=== PATIENT | male | born 1960 | race Caucasian/White ===

== ENCOUNTER 2024-03-22 13:44 | Emergency (ER) | payer OTHER, SELFPAY ==
[2024-03-22 13:56] VITALS: BP 155/83; PULSE 84; RESP 18; TEMP 36.7; O2SAT 100; BMI 21.1
--- NOTE | 2024-03-22 14:21 | ED_ITS ---
Documented by User: Martin Parish DO 03/23/24 10:27 HPI - GI Bleed 2 General: Chief complaint: GI Bleed Stated complaint: black stool Time Seen by Provider: 03/22/24 14:17 History of Present Illness: 63-year-old male presents emergency room complaining of dark stools. No otoniel bright red blood. Few days ago he had taken some charcoal because his well- adjusted positive for E. coli. Some mild abdominal discomfort no hematochezia or hematemesis. No history of any GI bleeds in the past. Patient does not drink. Associated symptoms: Denies abdominal pain, chills, fever(s) or rash Related Data Home Medications Medication Instructions Recorded Confirmed tamsulosin 0.4 mg capsule 0.4 mg PO DAILY 03/22/24 03/22/24 Previous Rx's Medication Instructions Recorded ketorolac 10 mg tablet 10 mg PO TID PRN pain #10 tabs 03/22/24 ondansetron 4 mg disintegrating 4 mg PO Q6H PRN nausea and 03/22/24 tablet vomiting #14 tabs Allergies Allergy/AdvReac Type Severity Reaction Status Date / Time No Known Allergies Allergy Verified 03/22/24 14:01 Review of Systems 2 Const: Denies: fever(s) or chills Card: Denies: chest pain Resp: Denies: dyspnea GI: Denies: abdominal pain : Denies: dysuria, urinary frequency or urinary urgency Musc: Denies: neck pain or back pain Skin/Breast: Denies: rash Physical Exam 2 Const: GENERAL APPEARANCE: cooperative ORIENTATION/CONSCIOUSNESS: Yes awake, Yes oriented to person, Yes oriented to place and Yes oriented to time HENMT: COMMON NORMALS: normocephalic, atraumatic and hearing grossly normal bilaterally HEAD & SCALP: normocephalic and atraumatic Resp: COMMON NORMALS: normal respiratory effort, No retractions, No use of accessory muscles and clear to auscultation bilaterally AUSCULTATION: clear to auscultation bilaterally Cardio: COMMON NORMALS: regular rate, regular rhythm and No murmurs present (Cardio) RATE: regular rate RHYTHM: regular rhythm GI: COMMON NORMALS: Soft to palpation and No hepatosplenomegaly present A USCULTATION: Yes normoactive bowel sounds PALPATION: Yes Soft to palpation, No Tenderness to palpation present (GI), No Guarding due to palpation present (GI) and Yes No hepatosplenomegaly present Extremity: COMMON NORMALS: normal to inspection, capillary refill normal, no clubbing, cyanosis or edema, no calf tenderness and no pedal edema Neuro: SENSORIUM/ORIENTATION: Yes oriented to person, Yes oriented to place and Yes oriented to time Skin: COMMON NORMALS: no rashes or lesions noted GENERAL SKIN EXAM: no rashes or lesions noted Course 2 Vital Signs: Vital signs: Vital Signs Temperature 98.1 F 03/22/24 13:56 Pulse Rate 83 03/22/24 19:23 Respiratory Rate 18 03/22/24 13:56 Blood Pressure 133/83 03/22/24 19:23 Pulse Oximetry 100 03/22/24 19:23 Oxygen Delivery Me thod Room Air 03/22/24 13:56 MDM - GI Bleed Medical Decision Making Patient initially presented for complaints of black stool. Stool sample was negative he also complains of abdominal pain had some blood in his urine CT was done pending read. Care signed out to Dr. Bowman at change of shift. See final notes for diagnosis and disposition. 63-year-old male gentleman checked out at shift change. This patient has suprapubic abdominal pain. His CBC is normal. His BMP shows a sodium of 128 is otherwise nonremarkable. He is Hemoccult negative. His BUN is normal. His liver enzymes are normal. Urinalysis showed hematuria. CT scan shows an enlarged bladder. There was no stone causing any other obstruction. The patient had a postvoid residual of greater than 350 cc by bladder scan. This is likely the cause of his symptoms. He is on tamsulosin. He refused Esposito catheter here. He will follow-up as an outpatient. Return for worsening symptoms. Lab Data 03/22/24 14:31 03/22/24 14:31 Radiology Impressions Abdomen/Pelvis CT 03/22/24 16:46 IMPRESSION: 1. No acute findings. 2. Prostatomegaly with indentation of the bladder base. 3. Ill-defined 4.8 cm hypodensity in segment 5 of the liver, lack of contrast administration makes evaluation limited, recommend nonemergent dedicated CT or MR of the liver for better characterization. Laboratory Results WBC 7.38 10^3/uL (3.29-11.43) 03/22/24 14:31 RBC 4.61 10^6/uL (3.85-5.65) 03/22/24 14:31 Hgb 14.50 g/dL (11.27-16.99) 03/22/24 14:31 Hct 42.7 % (37-53) 03/22/24 14:31 MCV 92.6 fl (82-101) 03/22/24 14:31 MCH 31.5 pg (27-33) 03/22/24 14:31 MCHC 34.0 g/dL (30-55) 03/22/24 14:31 RDW 12.4 % (12.1-15.1) 03/22/24 14:31 Plt Count 340 10^3/cmm (157-399) 03/22/24 14:31 MPV 8.6 fL (7.4-10.4) 03/22/24 14:31 Neut % (Auto) 74.6 % 03/22/24 14:31 Lymph % (Auto) 14.8 % 03/22/24 14:31 Tripp % (Auto) 9.5 % 03/22/24 14:31 Eos % (Auto) 0.4 % 03/22/24 14:31 Baso % (Auto) 0.4 % 03/22/24 14:31 Neut # (Auto) 5.51 10^3/uL (1.8-7.7) 03/22/24 14:31 Lymph # (Auto) 1.1 10^3/uL (0.8-4.8) 03/22/24 14:31 Tripp # (Auto) 0.7 10^3/uL (0.2-0.9) 03/22/24 14:31 Eos # (Auto) 0.0 10^3/uL (0.0-0.8) 03/22/24 14:31 Baso # (Auto) 0.0 10^3/uL (0.0-0.1) 03/22/24 14:31 Nucleated RBC % (auto) 0 % 03/22/24 14:31 Nucleated RBCs # 0.0 /100WBC 03/22/24 14:31 PT 13.50 SECONDS (12.1-14.9) 03/22/24 14:31 INR 1.00 (0.8-1.2) 03/22/24 14:31 Sodium 128 mmol/L (136-145) L 03/22/24 14:31 Potassium 4.6 mmol/L (3.5-5.1) 03/22/24 14:31 Chloride 88 mmol/L (98-107) L 03/22/24 14:31 Carbon Dioxide 27 mmol/L (22-29) 03/22/24 14:31 Anion Gap 17.6 (5-19) 03/22/24 14:31 BUN 10 mg/dL (8-23) 03/22/24 14:31 Creatinine 0.7 mg/dL (0.7-1.2) 03/22/24 14:31 GFR Calculation 113.5 mL/min (90-130) 03/22/24 14:31 Glucose 134 mg/dL (65-115) H 03/22/24 14:31 Calculated Osmolality 267 mOsm/kg (285-295) L 03/22/24 14:31 Calcium 10.2 mg/dL (8.5-10.5) 03/22/24 14:31 Total Bilirubin 1.1 mg/dL (0.15-1.2) 03/22/24 14:31 AST 37 U/L (0-40) 03/22/24 14:31 ALT 34 U/L (0-41) 03/22/24 14:31 Alkaline Phosphatase 76 U/L (40-130) 03/22/24 14:31 Total Protein 7.3 g/dL (6.6-8.7) 03/22/24 14:31 Albumin 4.6 g/dL (3.5-5.2) 03/22/24 14:31 Globulin 2.7 g/dL (1.3-4.6) 03/22/24 14:31 Urine Color Yellow (Yellow) 03/22/24 15:54 Urine Appearance Cloudy (CLEAR) A 03/22/24 15:54 Urine pH 7.0 (5-7) 03/22/24 15:54 Ur Specific [place] 1.013 (1.005-1.030) 03/22/24 15:54 Urine Protein Negative (Negative) 03/22/24 15:54 Urine Glucose (UA) Negative (Normal) 03/22/24 15:54 Urine Ketones Trace (Negative) 03/22/24 15:54 Urine Blood 1+ (Negative) A 03/22/24 15:54 Urine Nitrate Negative (Negative) 03/22/24 15:54 Urine Bilirubin Negative (Negative) 03/22/24 15:54 Urine Urobilinogen 0.2 mg/dL (Negative) 03/22/24 15:54 Ur Leukocyte Esterase Negative (Negative) 03/22/24 15:54 Urine RBC 5-10 /hpf (0-2) H 03/22/24 15:54 Urine WBC 0-4 /hpf (0-5) H 03/22/24 15:54 Ur Squamous Epith Cells 0-4 /hpf (0-5) H 03/22/24 15:54 Amorphous Sediment Not Reportable 03/22/24 15:54 Urine Bacteria 2+ /hpf (NONE) H 03/22/24 15:54 Discharge Plan Discharge Patient Disposition: Home Clinical Impression: Abdominal pain Condition: Stable Prescriptions: New ketorolac 10 mg tablet 10 mg PO TID PRN (Reason: pain) Qty: 10 0RF ondansetron 4 mg tablet,disintegrating 4 mg PO Q6H PRN (Reason: nausea and vomiting) Qty: 14 0RF No Action tamsulosin 0.4 mg capsule 0.4 mg PO DAILY Discharge Orders: Discharge ED (Routine); Ordered 03/22/24 Ordered By: Van Bowman Discharge Diet: Clear Liquid Discharge Activity: Increase activity as tolerated Patient Instructions: Abdominal Pain (ED), Opioid Safety, Pain Management Activity Restrictions/Additional Instructions: Thank you for choosing [facility] for your healthcare needs today. It is very important that you follow up as instructed or that you return to the Emergency Department should you have concerns or if your condition changes or worsens in any way. You are seen in the emergency room for concerns about dark stool. The stool sample was negative for occult blood. Your hemoglobin is normal your white count is normal your abdominal exam was benign. You did have a mildly low sodium level your liver functions were normal. Recommend clear liquid diet for the next 2 days then advance as tolerated if your symptoms worsen or change return. Also, your bladder was enlarged by CAT scan. This can cause abdominal pain as well. We noticed that you are on tamsulosin, which can help this if taken regularly. Medications are for symptoms alone. See your doctor this coming week. Coding Level of Care Code ED Electromechanical Equipment Tester for Chg Fwd Documented by User: Van Bowman DO 03/22/24 21:08 HPI - GI Bleed 2 General: Chief complaint: GI Bleed Stated complaint: black stool Time Seen by Provider: 03/22/24 14:17 Related Data Home Medications Medication Instructions Recorded Confirmed tamsulosin 0.4 mg capsule 0.4 mg PO DAILY 03/22/24 03/22/24 Previous Rx's Medication Instructions Recorded ketorolac 10 mg tablet 10 mg PO TID PRN pain #10 tabs 03/22/24 ondansetron 4 mg disintegrating 4 mg PO Q6H PRN nausea and 03/22/24 tablet vomiting #14 tabs Allergies Allergy/AdvReac Type Severity Reaction Status Date / Time No Known Allergies Allergy Verified 03/22/24 14:01 Course 2 Vital Signs: Vital signs: Vital Signs Temperature 98.1 F 03/22/24 13:56 Pulse Rate 83 03/22/24 19:23 Respiratory Rate 18 03/22/24 13:56 Blood Pressure 133/83 03/22/24 19:23 Pulse Oximetry 100 03/22/24 19:23 Oxygen Delivery Me thod Room Air 03/22/24 13:56 MDM - GI Bleed Medical Decision Making 63-year-old male gentleman checked out at shift change. This patient has suprapubic abdominal pain. His CBC is normal. His BMP shows a sodium of 128 is otherwise nonremarkable. He is Hemoccult negative. His BUN is normal. His liver enzymes are normal. Urinalysis showed hematuria. CT scan shows an enlarged bladder. There was no stone causing any other obstruction. The patient had a postvoid residual of greater than 350 cc by bladder scan. This is likely the cause of his symptoms. He is on tamsulosin. He refused Esposito catheter here. He will follow-up as an outpatient. Return for worsening symptoms. Lab Data 03/22/24 14:31 03/22/24 14:31 Radiology Impressions Abdomen/Pelvis CT 03/22/24 16:46 IMPRESSION: 1. No acute findings. 2. Prostatomegaly with indentation of the bladder base. 3. Ill-defined 4.8 cm hypodensity in segment 5 of the liver, lack of contrast administration makes evaluation limited, recommend nonemergent dedicated CT or MR of the liver for better characterization. Laboratory Results WBC 7.38 10^3/uL (3.29-11.43) 03/22/24 14:31 RBC 4.61 10^6/uL (3.85-5.65) 03/22/24 14:31 Hgb 14.50 g/dL (11.27-16.99) 03/22/24 14:31 Hct 42.7 % (37-53) 03/22/24 14:31 MCV 92.6 fl (82-101) 03/22/24 14:31 MCH 31.5 pg (27-33) 03/22/24 14:31 MCHC 34.0 g/dL (30-55) 03/22/24 14:31 RDW 12.4 % (12.1-15.1) 03/22/24 14:31 Plt Count 340 10^3/cmm (157-399) 03/22/24 14:31 MPV 8.6 fL (7.4-10.4) 03/22/24 14:31 Neut % (Auto) 74.6 % 03/22/24 14:31 Lymph % (Auto) 14.8 % 03/22/24 14:31 Tripp % (Auto) 9.5 % 03/22/24 14:31 Eos % (Auto) 0.4 % 03/22/24 14:31 Baso % (Auto) 0.4 % 03/22/24 14:31 Neut # (Auto) 5.51 10^3/uL (1.8-7.7) 03/22/24 14:31 Lymph # (Auto) 1.1 10^3/uL (0.8-4.8) 03/22/24 14:31 Tripp # (Auto) 0.7 10^3/uL (0.2-0.9) 03/22/24 14:31 Eos # (Auto) 0.0 10^3/uL (0.0-0.8) 03/22/24 14:31 Baso # (Auto) 0.0 10^3/uL (0.0-0.1) 03/22/24 14:31 Nucleated RBC % (auto) 0 % 03/22/24 14:31 Nucleated RBCs # 0.0 /100WBC 03/22/24 14:31 PT 13.50 SECONDS (12.1-14.9) 03/22/24 14:31 INR 1.00 (0.8-1.2) 03/22/24 14:31 Sodium 128 mmol/L (136-145) L 03/22/24 14:31 Potassium 4.6 mmol/L (3.5-5.1) 03/22/24 14:31 Chloride 88 mmol/L (98-107) L 03/22/24 14:31 Carbon Dioxide 27 mmol/L (22-29) 03/22/24 14:31 Anion Gap 17.6 (5-19) 03/22/24 14:31 BUN 10 mg/dL (8-23) 03/22/24 14:31 Creatinine 0.7 mg/dL (0.7-1.2) 03/22/24 14:31 GFR Calculation 113.5 mL/min (90-130) 03/22/24 14:31 Glucose 134 mg/dL (65-115) H 03/22/24 14:31 Calculated Osmolality 267 mOsm/kg (285-295) L 03/22/24 14:31 Calcium 10.2 mg/dL (8.5-10.5) 03/22/24 14:31 Total Bilirubin 1.1 mg/dL (0.15-1.2) 03/22/24 14:31 AST 37 U/L (0-40) 03/22/24 14:31 ALT 34 U/L (0-41) 03/22/24 14:31 Alkaline Phosphatase 76 U/L (40-130) 03/22/24 14:31 Total Protein 7.3 g/dL (6.6-8.7) 03/22/24 14:31 Albumin 4.6 g/dL (3.5-5.2) 03/22/24 14:31 Globulin 2.7 g/dL (1.3-4.6) 03/22/24 14:31 Urine Color Yellow (Yellow) 03/22/24 15:54 Urine Appearance Cloudy (CLEAR) A 03/22/24 15:54 Urine pH 7.0 (5-7) 03/22/24 15:54 Ur Specific [place] 1.013 (1.005-1.030) 03/22/24 15:54 Urine Protein Negative (Negative) 03/22/24 15:54 Urine Glucose (UA) Negative (Normal) 03/22/24 15:54 Urine Ketones Trace (Negative) 03/22/24 15:54 Urine Blood 1+ (Negative) A 03/22/24 15:54 Urine Nitrate Negative (Negative) 03/22/24 15:54 Urine Bilirubin Negative (Negative) 03/22/24 15:54 Urine Urobilinogen 0.2 mg/dL (Negative) 03/22/24 15:54 Ur Leukocyte Esterase Negative (Negative) 03/22/24 15:54 Urine RBC 5-10 /hpf (0-2) H 03/22/24 15:54 Urine WBC 0-4 /hpf (0-5) H 03/22/24 15:54 Ur Squamous Epith Cells 0-4 /hpf (0-5) H 03/22/24 15:54 Amorphous Sediment Not Reportable 03/22/24 15:54 Urine Bacteria 2+ /hpf (NONE) H 03/22/24 15:54 All radiology interpretation(s) finalized by discharge Discharge Plan Discharge Patient Disposition: Home Clinical Impression: Abdominal pain Condition: Stable Prescriptions: New ketorolac 10 mg tablet 10 mg PO TID PRN (Reason: pain) Qty: 10 0RF ondansetron 4 mg tablet,disintegrating 4 mg PO Q6H PRN (Reason: nausea and vomiting) Qty: 14 0RF No Action tamsulosin 0.4 mg capsule 0.4 mg PO DAILY Discharge Orders: Discharge ED (Routine); Ordered 03/22/24 Ordered By: Van Bowman Discharge Diet: Clear Liquid Discharge Activity: Increase activity as tolerated Patient Instructions: Abdominal Pain (ED), Opioid Safety, Pain Management Activity Restrictions/Additional Instructions: Thank you for choosing [facility] for your healthcare needs today. It is very important that you follow up as instructed or that you return to the Emergency Department should you have concerns or if your condition changes or worsens in any way. You are seen in the emergency room for concerns about dark stool. The stool sample was negative for occult blood. Your hemoglobin is normal your white count is normal your abdominal exam was benign. You did have a mildly low sodium level your liver functions were normal. Recommend clear liquid diet for the next 2 days then advance as tolerated if your symptoms worsen or change return. Also, your bladder was enlarged by CAT scan. This can cause abdominal pain as well. We noticed that you are on tamsulosin, which can help this if taken regularly. Medications are for symptoms alone. See your doctor this coming week. Coding Level of Care Code ED Electromechanical Equipment Tester for Angel Ortega
[2024-03-22 14:30] VITALS: BP 141/73; PULSE 84; O2SAT 100
[2024-03-22 14:40] LABS: Basophils % 0.4 %; Eosinophils % 0.4 %; Hematocrit 42.7 % (37-53); Lymphocytes # 1.1 10^3/uL (0.8-4.8); Lymphocytes % 14.8 %; Mean Corpuscular Hemoglobin 31.5 pg (27-33); Mean Corpuscular Volume 92.6 fl (82-101); Mean Platelet Volume 8.6 fL (7.4-10.4); Monocytes # 0.7 10^3/uL (0.2-0.9); Monocytes % 9.5 %; Neutrophils # 5.51 10^3/uL (1.8-7.7); Neutrophils % 74.6 %; Nucleated Red Blood Cells % 0 %; Platelet Count 340 10^3/cmm (157-399); Red Blood Count 4.61 10^6/uL (3.85-5.65); Red Cell Distribution Width 12.4 % (12.1-15.1); White Blood Count 7.38 10^3/uL (3.29-11.43)
[2024-03-22 15:00] VITALS: BP 148/77; PULSE 83; O2SAT 100
[2024-03-22 15:00] LABS: Alanine Aminotransferase 34 U/L (0-41); Albumin Level 4.6 g/dL (3.5-5.2); Alkaline Phosphatase 76 U/L (40-130); Anion Gap 17.6 (5-19); Aspartate Amino Transferase 37 U/L (0-40); Blood Urea Nitrogen 10 mg/dL (8-23); Calcium 10.2 mg/dL (8.5-10.5); Carbon Dioxide 27 mmol/L (22-29); Chloride 88 mmol/L (98-107); Creatinine Clr Calc Pharmacy 116.0659; Globulin 2.7 g/dL (1.3-4.6); Glomerular Filtration Rate 113.5 mL/min (90-130); Glucose 134 mg/dL (65-115); Osmolality Calculated 267 mOsm/kg (285-295); Potassium 4.6 mmol/L (3.5-5.1); Sodium 128 mmol/L (136-145); Total Bilirubin 1.1 mg/dL (0.15-1.2); Total Protein 7.3 g/dL (6.6-8.7)
[2024-03-22 15:30] VITALS: BP 142/92; PULSE 85; O2SAT 99
[2024-03-22 16:28] LABS: Bilirubin Urine Negative (Negative); Blood Urine 1+ (Negative); Glucose Urine UA Negative (Normal); Ketones Urine Trace (Negative); Leukocyte Esterase Urine Negative (Negative); Nitrate Urine Negative (Negative); Protein Urine Negative (Negative); Specific Gravity, Urine 1.013 (1.005-1.030); Urine Appearance Cloudy (CLEAR); Urine Color Yellow (Yellow); Urobilinogen Urine 0.2 mg/dL (Negative)
[2024-03-22 16:43] LABS: Add Urine Culture? Yes; Add Urine Microscopic? YES; Bacteria Urine 2+ /hpf; Squamous Epithelial Cell Urine 0-4 /hpf (0-5); UA Manual Slide Review YES; WBC Urine 0-4 /hpf (0-5)
--- NOTE | 2024-03-22 16:46 | CTR_ITS ---
PROCEDURE INFORMATION: Exam: CT Abdomen And Pelvis Without Contrast Exam date and time: 03/22/2024 4:52 PM Age: 63 years old Clinical indication: Other: Hematuria TECHNIQUE: Imaging protocol: Computed tomography of the abdomen and pelvis without contrast. Radiation optimization: All CT scans at this facility use at least one of these dose optimization techniques: automated exposure control; mA and/or kV adjustment per patient size (includes targeted exams where dose is matched to clinical indication); or iterative reconstruction. COMPARISON: l spine RADIATION DOSE METRICS: Total DLP (mGy-cm): 383.75 FINDINGS: Limitations: Examination is limited for the evaluation of solid organs and vascular structures due to the lack of intravenous contrast. Lungs: Lung bases are unremarkable. Liver: Ill-defined 4.8 cm hypodensity in segment 5 of the liver, lack of contrast administration makes this evaluation limited. Recommend clinical correlation and dedicated CT of the liver for better evaluation. Gallbladder and biliary ducts: No intrahepatic or extrahepatic biliary ductal dilatation. The gallbladder is unremarkable with no radioopaque stone. Pancreas: Pancreas is unremarkable. No ductal dilation or peripancreatic inflammation. Spleen: The spleen is unremarkable. Adrenal glands: Adrenal glands are unremarkable. Kidneys and ureters: No hydronephrosis or nephrolithiasis. Stomach and bowel: Stomach is distended. Small and large bowel are normal in caliber without evidence of obstruction. Extensive amount of feces in the entire colon. Diverticulosis without evidence of diverticulitis. Appendix: No evidence of appendicitis. Intraperitoneal space: No free intraperitoneal air. No fluid collection. Vasculature: There is no aortic aneurysm. There is atherosclerotic disease. Lymph nodes: No pathologically enlarged lymph nodes (by short axis size criteria). Urinary bladder: No focal wall thickening of the urinary bladder. Reproductive: The prostate is enlarged and indents the base of the bladder. Bones/joints: No acute osseous abnormality. There is degenerative disease of the spine. Soft tissues: Unremarkable. CT/CT kidney stone [id number] IMPRESSION: 1. No acute findings. 2. Prostatomegaly with indentation of the bladder base. 3. Ill-defined 4.8 cm hypodensity in segment 5 of the liver, lack of contrast administration makes evaluation limited, recommend nonemergent dedicated CT or MR of the liver for better characterization.
--- NOTE | 2024-03-22 17:52 | PC.NURSE ---
PT REPEATEDLY TAKING OFF BP CUFF AND PULSE OX. EDUCATED ON THE NEED FOR EQUIPMENT, BUT PT CONTINUES TO TAKE IT OFF AND ROAM AROUND THE ROOM AND PHYSICS TUTOR THE DOORWAY.
[2024-03-22 19:00] VITALS: BP 133/83; PULSE 83; O2SAT 100
[2024-03-22] MEDS: ketorolac 30 mg/mL INJ IVP (19:05)
[2024-03-22] MEDS: ondansetron 2 mg/ML SDV 2 mL 4 MG IVP (19:05)
[2024-03-22 19:23] VITALS: BP 133/83; PULSE 83; O2SAT 100
== END 2024-03-22 19:05 | disposition home or self-care (01) ==
PROVIDERS: Emergency Medicine; Family Medicine; Emergency Provider Emergency Medicine
DX: R10.9 Unspecified abdominal pain (principal)
CPT/HCPCS: 36415; 51798; 74176; 80053; 81001; 85025; 85610; 87086; 96374; 96375; 99285; J1885; J2405

== ENCOUNTER 2024-04-29 08:10 | Emergency (ER) | payer OTHER, SELFPAY ==
[2024-04-29 08:34] VITALS: BP 122/74; PULSE 94; RESP 18; TEMP 36.8; O2SAT 100; BMI 18.4
--- NOTE | 2024-04-29 08:42 | ECG_ITS ---
[facility]24[facility]29 Pat Name: Natalee Barney Department: Room: Gender: Male Business Solution Analyst: : 1960 Requested By: Martin Navarro Order Number: [id number] Reading MD: RELL AVERY Measurements Intervals [place] Rate: 74 P: 86 VA: 177 QRS: 68 QRSD: 100 T: 90 QT: 391 QTc: 435 Interpretive Statements SINUS RHYTHM No previous ECG available for comparison Electronically Signed On 05-01-2024 23:29:56 BURRITO MAKER by RELL AVERY [id number]
[2024-04-29 08:53] LABS: Eosinophils % 0.4 %; Hematocrit 39.8 % (37-53); Lymphocytes # 0.8 10^3/uL (0.8-4.8); Lymphocytes % 9.1 %; Mean Corpuscular HGB Conc 35.2 g/dL (30-55); Mean Corpuscular Hemoglobin 31.7 pg (27-33); Mean Platelet Volume 8.1 fL (7.4-10.4); Monocytes # 0.7 10^3/uL (0.2-0.9); Monocytes % 7.8 %; Neutrophils # 7.01 10^3/uL (1.8-7.7); Neutrophils % 82.3 %; Nucleated Red Blood Cells % 0 %; Platelet Count 359 10^3/cmm (157-399); Red Blood Count 4.42 10^6/uL (3.85-5.65); Red Cell Distribution Width 12.5 % (12.1-15.1)
--- NOTE | 2024-04-29 08:57 | PC.PHAR ---
patient stopped taking meloxicam ,tamsulosin, cyclobenzaprine due to the way it made him feel. removed from chart
[2024-04-29 09:07] LABS: Alanine Aminotransferase 63 U/L (0-41); Albumin Level 4.5 g/dL (3.5-5.2); Alkaline Phosphatase 106 U/L (40-130); Anion Gap 17.6 (5-19); Aspartate Amino Transferase 54 U/L (0-40); Blood Urea Nitrogen 17 mg/dL (8-23); Calcium 9.9 mg/dL (8.5-10.5); Carbon Dioxide 28 mmol/L (22-29); Chloride 80 mmol/L (98-107); Creatinine Clr Calc Pharmacy 74.4788; Globulin 2.3 g/dL (1.3-4.6); Glucose 140 mg/dL (65-115); Osmolality Calculated 256 mOsm/kg (285-295); Potassium 4.6 mmol/L (3.5-5.1); Sodium 121 mmol/L (136-145); Total Bilirubin 1.4 mg/dL (0.15-1.2); Total Protein 6.8 g/dL (6.6-8.7)
--- NOTE | 2024-04-29 09:11 | ED_ITS ---
HPI - Abdominal Pain 2 General: Chief Complaint: Abdominal Pain Stated Complaint: Pain in abd, dizzy Time Seen by Provider: 04/29/24 08:27 History of Present Illness: 63-year-old male presents to the emergen cy room complaining of lower abdominal pain. He has a history of BPH. Said some mild abdominal discomfort. He has not had any dysuria urgency or frequency no otoniel hematuria. Denies fever sweats or chills no vomiting no diarrhea. Associated Symptoms: Denies chills, dysuria and fever(s) Related Data Previous Rx's Medication Instructions Recorded diclofenac sodium 75 mg 75 mg PO Q12H PRN pain #20 tabs 04/29/24 tablet,delayed release promethazine 25 mg tablet 25 mg PO Q6H PRN nausea and 04/29/24 vomiting #20 tabs tizanidine 4 mg tablet 4 mg PO Q6H PRN muscle spasticity 04/29/24 #20 tabs Allergies Allergy/AdvReac Type Severity Reaction Status Date / Time No Known Allergies Allergy Verified 03/22/24 14:01 Review of Systems 2 Const: Denies: fever(s) or chills Card: Denies: chest pain Resp: Denies: dyspnea GI: Reports: abdominal pain : Denies: dysuria, urinary frequency or urinary urgency Musc: Denies: neck pain or back pain Skin/Breast: Denies: rash Physical Exam 2 Const: GENERAL APPEARANCE: cooperative ORIENTATION/CONSCIOUSNESS: Yes awake, Yes oriented to person, Yes oriented to place and Yes oriented to time HENMT: COMMON NORMALS: normocephalic, atraumatic and hearing grossly normal bilaterally HEAD & SCALP: normocephalic and atraumatic Resp: COMMON NORMALS: normal respiratory effort, No retractions, No use of accessory muscles and clear to auscultation bilaterally AUSCULTATION: clear to auscultation bilaterally Cardio: COMMON NORMALS: regular rate, regular rhythm and No murmurs present (Cardio) RATE: regular rate RHYTHM: regular rhythm GI: COMMON NORMALS: No hepatosplenomegaly present AUSCULTATION: Yes normoactive bowel sounds PALPATION: Yes Tenderness to palpation present (GI) (Diffuse nonspecific), No Guarding due to palpation present (GI) and Yes No hepatosplenomegaly present Extremity: COMMON NORMALS: normal to inspection, capillary refill normal, no clubbing, cyanosis or edema, no calf tenderness and no pedal edema Neuro: SENSORIUM/ORIENTATION: Yes oriented to person, Yes oriented to place and Yes oriented to time Skin: COMMON NORMALS: no rashes or lesions noted GENERAL SKIN EXAM: no rashes or lesions noted Course 2 Vital Signs: Vital signs: Vital Signs Temperature 98.3 F 04/29/24 08:34 Pulse Rate 86 04/29/24 12:52 Respiratory Rate 18 04/29/24 08:34 Blood Pressure 133/83 04/29/24 12:52 Pulse Oximetry 98 04/29/24 12:52 Oxygen Delivery Me thod Room Air 04/29/24 11:23 MDM - Abdominal Pain Medical Decision Making Labs and imaging reviewed no acute findings. There is a questionable area on the liver that will need reimaging at a later date either with CT with contrast or MRI. Bladder scan does not show urinary retention. Also noted to have mild hyponatremia. We did set up a gallbladder ultrasound as an outpatient patient has further follow-up with his primary care or oncology team. Medical Records I reviewed the patient's medical records. Lab Data I reviewed the patient's lab results. 04/29/24 08:45 04/29/24 08:45 Labs/Radiology: Laboratory Results WBC 8.50 10^3/uL (3.29-11.43) 04/29/24 08:45 RBC 4.42 10^6/uL (3.85-5.65) 04/29/24 08:45 Hgb 14.00 g/dL (11.27-16.99) 04/29/24 08:45 Hct 39.8 % (37-53) 04/29/24 08:45 MCV 90.0 fl (82-101) 04/29/24 08:45 MCH 31.7 pg (27-33) 04/29/24 08:45 MCHC 35.2 g/dL (30-55) 04/29/24 08:45 RDW 12.5 % (12.1-15.1) 04/29/24 08:45 Plt Count 359 10^3/cmm (157-399) 04/29/24 08:45 MPV 8.1 fL (7.4-10.4) 04/29/24 08:45 Neut % (Auto) 82.3 % 04/29/24 08:45 Lymph % (Auto) 9.1 % 04/29/24 08:45 [place] % (Auto) 7.8 % 04/29/24 08:45 Eos % (Auto) 0.4 % 04/29/24 08:45 Baso % (Auto) 0.0 % 04/29/24 08:45 Neut # (Auto) 7.01 10^3/uL (1.8-7.7) 04/29/24 08:45 Lymph # (Auto) 0.8 10^3/uL (0.8-4.8) 04/29/24 08:45 [place] # (Auto) 0.7 10^3/uL (0.2-0.9) 04/29/24 08:45 Eos # (Auto) 0.0 10^3/uL (0.0-0.8) 04/29/24 08:45 Baso # (Auto) 0.0 10^3/uL (0.0-0.1) 04/29/24 08:45 Nucleated RBC % (auto) 0 % 04/29/24 08:45 Nucleated RBCs # 0.0 /100WBC 04/29/24 08:45 Sodium 121 mmol/L (136-145) L 04/29/24 08:45 Potassium 4.6 mmol/L (3.5-5.1) 04/29/24 08:45 Chloride 80 mmol/L (98-107) L 04/29/24 08:45 Carbon Dioxide 28 mmol/L (22-29) 04/29/24 08:45 Anion Gap 17.6 (5-19) 04/29/24 08:45 BUN 17 mg/dL (8-23) 04/29/24 08:45 Creatinine 0.9 mg/dL (0.7-1.2) 04/29/24 08:45 GFR Calculation 85.0 mL/min (90-130) L 04/29/24 08:45 Glucose 140 mg/dL (65-115) H 04/29/24 08:45 Calculated Osmolality 256 mOsm/kg (285-295) L 04/29/24 08:45 Calcium 9.9 mg/dL (8.5-10.5) 04/29/24 08:45 Total Bilirubin 1.4 mg/dL (0.15-1.2) H 04/29/24 08:45 AST 54 U/L (0-40) H 04/29/24 08:45 ALT 63 U/L (0-41) H 04/29/24 08:45 Alkaline Phosphatase 106 U/L (40-130) 04/29/24 08:45 Total Protein 6.8 g/dL (6.6-8.7) 04/29/24 08:45 Albumin 4.5 g/dL (3.5-5.2) 04/29/24 08:45 Globulin 2.3 g/dL (1.3-4.6) 04/29/24 08:45 Urine Color Yellow (Yellow) 04/29/24 09:50 Urine Appearance Clear (CLEAR) 04/29/24 09:50 Urine pH 8.0 (5-7) A 04/29/24 09:50 Ur Specific [place] 1.011 (1.005-1.030) 04/29/24 09:50 Urine Protein Negative (Negative) 04/29/24 09:50 Urine Glucose (UA) Negative (Normal) 04/29/24 09:50 Urine Ketones Trace (Negative) 04/29/24 09:50 Urine Blood Negative (Negative) 04/29/24 09:50 Urine Nitrate Negative (Negative) 04/29/24 09:50 Urine Bilirubin Negative (Negative) 04/29/24 09:50 Urine Urobilinogen 1.0 mg/dL (Negative) 04/29/24 09:50 Ur Leukocyte Esterase Negative (Negative) 04/29/24 09:50 Urine RBC 3-5 /hpf (0-2) 04/29/24 09:50 Urine WBC 0-5 /hpf (0-5) 04/29/24 09:50 Ur Squamous Epith Cells 0-5 /hpf (0-5) 04/29/24 09:50 Amorphous Sediment Not Reportable 04/29/24 09:50 Urine Bacteria None seen /hpf (NONE) 04/29/24 09:50 Hyaline Casts 0-4 /lpf H 04/29/24 09:50 All radiology interpretation(s) finalized by discharge Discharge Plan Discharge Patient Disposition: Home Clinical Impression: Hyponatremia, Prostate cancer, Elevated transaminase level, Low back pain Condition: Stable Prescriptions: New tizanidine 4 mg tablet 4 mg PO Q6H PRN (Reason: muscle spasticity) Qty: 20 0RF Rx Instructions: do not exceed 3 doses per 24 hrs promethazine 25 mg tablet 25 mg PO Q6H PRN (Reason: nausea and vomiting) Qty: 20 0RF diclofenac sodium 75 mg tablet,delayed release (DR/EC) 75 mg PO Q12H PRN (Reason: pain) Qty: 20 0RF Discharge Orders: Discharge ED (Routine); Ordered 04/29/24 Ordered By: Martin Parish Discharge Diet: Advance as tolerated Discharge Activity: Increase activity as tolerated Patient Instructions: Opioid Safety, Pain Management Activity Restrictions/Additional Instructions: Thank you for choosing [facility] for your healthcare needs today. It is very important that you follow up as instructed or that you return to the Emergency Department should you have concerns or if your condition changes or worsens in any way. You were seen in the emergency room with complaints of abdominal discomfort. Most of your abdominal discomfort you are referred to the area above the pubic bone in the pelvis. We did scan your bladder there is no significant residual in the bladder after voiding. Your liver enzymes were elevated as well as your bilirubin. Since you are not having pain in this area and preferred to go home we set up an outpatient gallbladder ultrasound for you. We also noticed your sodium was low. We did give you IV fluids to help improve this. You should recheck your sodium and reevaluated your primary care doctor within the next week. Follow-up with the results of the gallbladder ultrasound within the next week. If you have worsening symptoms return to the emergency room. You had complained of some low back pain as well. You were given diclofenac and tizanidine for this. Avoid fatty foods spicy foods red meats and dairy products as these may aggravate gallbladder symptoms. You are also given promethazine to use as needed Coding Level of Care Code ED Home Planning Consultant Salesperson for Angel Ortega
--- NOTE | 2024-04-29 09:20 | PC.NURSE ---
pt will not sit still, pt pacing room. pt not on satellite project site monitor d/t pacing room.
[2024-04-29 10:00] LABS: Bilirubin Urine Negative (Negative); Blood Urine Negative (Negative); Glucose Urine UA Negative (Normal); Ketones Urine Trace (Negative); Leukocyte Esterase Urine Negative (Negative); Nitrate Urine Negative (Negative); Protein Urine Negative (Negative); Specific Gravity, Urine 1.011 (1.005-1.030); Urine Appearance Clear (CLEAR); Urine Color Yellow (Yellow)
[2024-04-29 10:02] LABS: Add Urine Microscopic? YES; Bacteria Urine None Seen /hpf; Hyaline Casts Urine 0-4 /lpf; Squamous Epithelial Cell Urine 0-5 /hpf (0-5); WBC Urine 0-5 /hpf (0-5)
[2024-04-29] MEDS: sodium chloride 0.9% 1,000 ML 999 ML IV (11:19)
[2024-04-29 11:23] VITALS: BP 136/81; O2SAT 97
[2024-04-29 12:52] VITALS: BP 133/83; PULSE 86; O2SAT 98
== END 2024-04-29 12:54 | disposition home or self-care (01) ==
PROVIDERS: Emergency Provider Family Medicine
DX: E87.1 Hypo-osmolality and hyponatremia (principal); C61 Malignant neoplasm of prostate; M54.50 Low back pain, unspecified; R74.01 Elevation of levels of liver transaminase levels
CPT/HCPCS: 36415; 51798; 80053; 81001; 85025; 93005; 99284; J7030

== ENCOUNTER 2024-05-07 08:37 | Emergency (ER) | payer OTHER, SELFPAY ==
[2024-05-07 08:42] VITALS: BP 129/78; PULSE 88; RESP 16; TEMP 36.5; O2SAT 95; BMI 16.9
--- NOTE | 2024-05-07 08:46 | W.ED.WEAKNES ---
HPI - Weakness General: Chief complaint: Weakness Stated complaint: weakness Time Seen by Provider: 05/07/24 08:45 History of Present Illness: Natalee is a 63-year-old male with BPH presenting to the ED today for blurry vision, significant weight loss, decreased appetite, low back pain, shortness of breath and overall malaise. Patient states that around about 2 months ago patient was started on Flomax for difficulty urinating and frequent urination. He states that since then he has been feeling progressively weaker and has had about 30 pounds of weight loss. Blurry vision started several days ago, denies double vision. Overall very poor appetite, usually has a small breakfast daily. Low back pain that seems to be worsening, patient denies any recent trauma, falls, or MVAs. Patient denies chest pain but endorses mild shortness of breath that has been ongoing for several weeks, worse with exertion Course Vital Signs: Vital signs: Vital Signs Temperature 97.7 F 05/07/24 08:42 Pulse Rate 88 05/07/24 08:42 Respiratory Rate 16 05/07/24 08:42 Blood Pressure 129/78 05/07/24 08:42 Pulse Oximetry 95 05/07/24 08:42 Oxygen Delivery Me thod Room Air 05/07/24 08:42 Discharge Plan Discharge Prescriptions: No Action tizanidine 4 mg tablet 4 mg PO Q6H PRN (Reason: muscle spasticity) Qty: 20 0RF Rx Instructions: do not exceed 3 doses per 24 hrs promethazine 25 mg tablet 25 mg PO Q6H PRN (Reason: nausea and vomiting) Qty: 20 0RF diclofenac sodium 75 mg tablet,delayed release (DR/EC) 75 mg PO Q12H PRN (Reason: pain) Qty: 20 0RF Coding Level of Care Code ED Consumer Product Advisor for Chg Fwd Related Data Previous Rx's Medication Instructions Recorded diclofenac sodium 75 mg 75 mg PO Q12H PRN pain #20 tabs 04/29/24 tablet,delayed release promethazine 25 mg tablet 25 mg PO Q6H PRN nausea and 04/29/24 vomiting #20 tabs tizanidine 4 mg tablet 4 mg PO Q6H PRN muscle spasticity 04/29/24 #20 tabs Allergies Allergy/AdvReac Type Severity Reaction Status Date / Time No Known Allergies Allergy Verified 03/22/24 14:01
--- NOTE | 2024-05-07 09:05 | XR_ITS ---
WS: [id number] Portable AP upright chest, 05/07/2024 Clinical Data: SOB Comparison: None, Findings: No nodules, masses or effusions are seen. The heart is normal. The pulmonary vascularity is not increased. No pneumonia or pneumothorax is seen. The diaphragms are flattened. The aortic arch a nd descending thoracic aorta show mild tortuosity. XR/XR chest 1V portable [id number] Impression: Hyperinflation and atherosclerosis.
--- NOTE | 2024-05-07 09:06 | ECG_ITS ---
[facility]: [facility]24[facility]07 Pat Name: Natalee Barney Department: Room: Gender: Male C Winforms Developer: : [id number] Requested By: Krystina Landa Order Number: [id number] Tonya MD: Ed Calloway M.D. Measurements Intervals [place] Rate: 91 P: 77 HI: 157 QRS: 68 QRSD: 90 T: 83 QT: 363 QTc: 448 Interpretive Statements SINUS RHYTHM Compared to ECG 04/29/2024 10:54:57 No significant changes Electronically Signed On 05-08-2024 09:03:16 DETASSELER by Ed Calloway M.D. [id number]
[2024-05-07] MEDS: acetaminophen 325 mg Tablet 650 MG PO (09:12)
--- NOTE | 2024-05-07 09:15 | CT_ITS ---
WS: [id number] CTA CHEST WITH CT ABDOMEN AND PELVIS. HISTORY: Short of breath, lower abdominal pain, difficulty urinating and constipation. Severe lower a bdominal pain. TECHNIQUE: CT angiogram is performed through the chest. Additional imaging is performed through the a bdomen and pelvis with IV contrast. Sagittal and coronal reformats have been submitted. MIP imaging also reviewed. All CT scans at [facility] use at least one of these dose optimization techniqu es: automated exposure control; mA and/or kV adjustment per patient size (includes targeted exams whe re dose is matched to clinical indication); or iterative reconstruction. Contrast: Omnipaque 350; 95 cc IV. DLP: 558.08 mGy.cm COMPARISON: Noncontrast CT 03/22/2024 Chest CTA: Very good opacification of the central and proximal pulmonary arteries. No pulmonary embol ism. Normal size pulmonary artery. Mild atherosclerosis aorta. Lungs are hyperinflated. No pulmonary mass or pneumonia. No pericardial or pleural effusions. Normal size heart. Patient is markedly cachec tic with sarcopenia. Abdomen CT: Abnormal liver. There are multiple low-attenuation masses within the liver highly suspici ous for metastatic disease. The largest area of abnormal enhancement is in the anterior LEFT lobe david suring 6.2 x 2.5 cm. There are additional scattered low-attenuation nodules within each lobe. There i s also mild central intrahepatic bile duct dilatation. Occluded portal vein. There is no enhancement in the central portal vein near the junction with the SMV. Cavernous transformation is noted in the c entral liver. Intrahepatic portions of the portal veins appear patent. Gallbladder is still present. Common bile duct dilated to 11 mm. Pancreas is normal size with diffuse pancreatic duct dilatation. Pancreatic duct at the pancreatic he ad measures 3.6 cm. There is fullness in mass noted at the pancreatic head measuring 3.8 x 2.8 cm. No rmal spleen. Neither adrenal gland is very well visualized but the RIGHT adrenal gland appears mildly prominent. RIGHT kidney: Negative. LEFT kidney: Abnormal LEFT kidney with severe hydroureteronephrosis and delayed excretion which is ne w since 03/22/2024. Marked dilatation of the renal pelvis and proximal ureter. The ureter is identifie d to the L3-4 disc level. Beyond that the ureter is difficult to trace. Scattered atherosclerotic plaque aorta. Proximal SMA and celiac axis are intact. Stomach is moderately distended with fluid. No small bowel obstruction. Severe constipation. Sigmoid colon is dilated to 6.6 cm with inspissated fecal material. No free air is identified. No definite ascites identified. There is mild stranding within the omental fat seen best along the anterior omentum. Pelvic CT: Markedly distended urinary bladder. Prostate gland is markedly enlarged and heterogeneous. Variable attenuation throughout the prostate gland. No osteoblastic or osteolytic bone disease. CT/CT angio chest w abd pel w con IMPRESSION: 1. No pulmonary embolism. 2. No pulmonary mass or nodule. No adenopathy. 3. Abnormal liver. Multiple low-attenuation masses highly suspicious for metas tatic disease. The largest in the LEFT lobe measures 6.2 x 2.5 cm. 4. Intrahepatic and extrahepatic bile duct dilatation and pancreatic duct dila tation. 5. Favor mass at the pancreatic head causing the pancreatic and common bile du ct obstruction. Pancreatic head fullness measures 3.8 x 2.8 cm. 6. 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 7. Severe hydroureteronephrosis LEFT kidney with delayed excretion. The ureter is dilated to the L3-4 disc level. Beyond that the ureter is not identified. N ew since 03/22/2024. 8. Markedly distended urinary bladder and marked heterogeneous enlargement of the prostate gland. 9. Severe diffuse constipation. Marked dilatation of the sigmoid colon to 6.6 cm in diameter. 10. Omental stranding. Omental stranding may be due to carcinomatosis, edema o r infection. 11. No significant amount of ascites identified. 12. No free air.
[2024-05-07 09:31] LABS: Basophils % 0.1 %; Hematocrit 42.8 % (37-53); Lymphocytes # 0.6 10^3/uL (0.8-4.8); Lymphocytes % 6.3 %; Mean Corpuscular HGB Conc 34.1 g/dL (30-55); Mean Corpuscular Hemoglobin 31.8 pg (27-33); Mean Corpuscular Volume 93.2 fl (82-101); Mean Platelet Volume 8.3 fL (7.4-10.4); Monocytes # 0.5 10^3/uL (0.2-0.9); Monocytes % 5.8 %; Neutrophils # 7.81 10^3/uL (1.8-7.7); Neutrophils % 87.4 %; Nucleated Red Blood Cells % 0 %; Platelet Count 349 10^3/cmm (157-399); Red Blood Count 4.59 10^6/uL (3.85-5.65); Red Cell Distribution Width 13.1 % (12.1-15.1); White Blood Count 8.94 10^3/uL (3.29-11.43)
--- NOTE | 2024-05-07 09:35 | ED_ITS ---
HPI - Weakness 2 General: Chief complaint: Weakness Stated complaint: weakness Time Seen by Provider: 05/07/24 08:45 Source: patient Mode of arrival: ambulatory Limitations: no limitations History of Present Illness: 63-year-old male states that he has been having increasing weakness and weight loss over the last month states had a 30 pound weight loss extreme fatigue has been having some abdominal pain as well he denies any shortness of breath states had some slight constipation denies any worse improved factors Associated symptoms: Reports nausea; Denies chest pain, chills, fever(s), headache(s) or vomiting Review of Systems 2 Const: Reports: fatigue and malaise; Denies: fever(s), chills, body aches or change in appetite ENMT: Denies: throat pain or dental pain Card: Denies: chest pain Resp: Denies: dyspnea GI: Reports: abdominal pain, nausea and constipation; Denies: vomiting Musc: Denies: neck pain or back pain Skin/Breast: Denies: rash Neuro: Denies: headache(s) Physical Exam 2 Const: COMMON NORMALS: patient oriented x3 GENERAL APPEARANCE: ill appearing and frail appearing HENMT: COMMON NORMALS: normocephalic and atraumatic HEAD & SCALP: n ormocephalic and atraumatic Eye: COMMON NORMALS: Equal, round and reactive pupils present and EOMs intact bilaterally PUPIL: Yes Equal, round and reactive pupils present Neck/C-Spine: COMMON NORMALS: full ROM and supple Chest: COMMONS NORMALS: normal inspection of the chest and normal palpation of entire chest wall Resp: COMMON NORMALS: normal respiratory effort, No retractions, No use of accessory muscles and clear to auscultation bilaterally AUSCULTATION: clear to auscultation bilaterally Cardio: COMMON NORMALS: regular rate, regular rhythm and No murmurs present (Cardio) RATE: regular rate RHYTHM: regular rhythm GI: COMMON NORMALS: Normal to inspection, nondistended, normoactive bowel sounds present, Soft to palpation, non-tender and no masses PALPATION: Yes Soft to palpation Extremity: COMMON NORMALS: normal to inspection and full ROM Neuro: COMMON NORMALS: patient oriented x3, moves all extremities and no focal motor deficits Psych: COMMON NORMALS: mental status grossly normal, Normal thought process present and cooperative THOUGHT PROCESS: Normal thought process present Skin: COMMON NORMALS: no rashes or lesions noted and no wounds GENERAL SKIN EXAM: no rashes or lesions noted Course 2 Vital Signs: Vital signs: Vital Signs Temperature 97.7 F 05/07/24 08:42 Pulse Rate 91 05/07/24 12:32 Respiratory Rate 16 05/07/24 08:42 Blood Pressure 135/80 05/07/24 12:32 Pulse Oximetry 99 05/07/24 12:32 Oxygen Delivery Me thod Room Air 05/07/24 08:42 MDM - Weakness Medical Decision Making Patient presented here with weight loss weakness was found to have 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 Medical Records I reviewed the patient's medical records. Lab Data I reviewed the patient's lab results. 05/07/24 09:23 05/07/24 09:23 Radiology Impressions Chest X-Ray 05/07/24 09:05 Impression: Hyperinflation and atherosclerosis. Chest/Abdomen/Pelvis CT 05/07/24 09:15 IMPRESSION: 1. No pulmonary embolism. 2. No pulmonary mass or nodule. No adenopathy. 3. Abnormal liver. Multiple low-attenuation masses highly suspicious for metastatic disease. The largest in the LEFT lobe measures 6.2 x 2.5 cm. 4. Intrahepatic and extrahepatic bile duct dilatation and pancreatic duct dilatation. 5. Favor mass at the pancreatic head causing the pancreatic and common bile duct obstruction. Pancreatic head fullness measures 3.8 x 2.8 cm. 6. Short segment of the portal vein nonenhancement, suspect bland thrombus versus tumor thrombus. 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 7. Severe hydroureteronephrosis LEFT kidney with delayed excretion. The ureter is dilated to the L3-4 disc level. Beyond that the ureter is not identified. New since 03/22/2024. 8. Markedly distended urinary bladder and marked heterogeneous enlargement of the prostate gland. 9. Severe diffuse constipation. Marked dilatation of the sigmoid colon to 6.6 cm in diameter. 10. Omental stranding. Omental stranding may be due to carcinomatosis, edema or infection. 11. No significant amount of ascites identified. 12. No free air. Laboratory Results WBC 8.94 10^3/uL (3.29-11.43) 05/07/24 09: RBC 4.59 10^6/uL (3.85-5.65) 05/07/24 09: Hgb 14.60 g/dL (11.27-16.99) 05/07/24 09:23 Hct 42.8 % (37-53) 05/07/24 09: MCV 93.2 fl (82-101) 05/07/24 09: MCH 31.8 pg (27-33) 05/07/24 09: MCHC 34.1 g/dL (30-55) 05/07/24 09: RDW 13.1 % (12.1-15.1) 05/07/24 09: Plt Count 349 10^3/cmm (157-399) 05/07/24 09: MPV 8.3 fL (7.4-10.4) 05/07/24 09: Neut % (Auto) 87.4 % 05/07/24 09: Lymph % (Auto) 6.3 % 05/07/24 09: [place] % (Auto) 5.8 % 05/07/24 09:23 Eos % (Auto) 0.0 % 05/07/24 09: Baso % (Auto) 0.1 % 05/07/24 09: Neut # (Auto) 7.81 10^3/uL (1.8-7.7) H 05/07/24 09: Lymph # (Auto) 0.6 10^3/uL (0.8-4.8) L 05/07/24 09: [place] # (Auto) 0.5 10^3/uL (0.2-0.9) 05/07/24 09: Eos # (Auto) 0.0 10^3/uL (0.0-0.8) 05/07/24 09: Baso # (Auto) 0.0 10^3/uL (0.0-0.1) 05/07/24 09: Nucleated RBC % (auto) 0 % 05/07/24 09: Nucleated RBCs # 0.0 /100WBC 05/07/24 09: ESR 1 mm/hr (0-10) 05/07/24 09: Sodium 121 mmol/L (136-145) L 05/07/24 09:23 Potassium 4.0 mmol/L (3.5-5.1) 05/07/24 09:23 Chloride 80 mmol/L (98-107) L 05/07/24 09:23 Carbon Dioxide 20 mmol/L (22-29) L 05/07/24 09:23 Anion Gap 25.0 (5-19) H 05/07/24 09:23 BUN 24 mg/dL (8-23) H 05/07/24 09:23 Creatinine 1.3 mg/dL (0.7-1.2) H 05/07/24 09:23 GFR Calculation 55.6 mL/min (90-130) L 05/07/24 09:23 Glucose 108 mg/dL (65-115) 05/07/24 09:23 Calculated Osmolality 257 mOsm/kg (285-295) L 05/07/24 09:23 Calcium 9.7 mg/dL (8.5-10.5) 05/07/24 09:23 Magnesium 2.6 mg/dL (1.7-2.3) H 05/07/24 09:23 Total Bilirubin 1.6 mg/dL (0.15-1.2) H 05/07/24 09:23 AST 62 U/L (0-40) H 05/07/24 09:23 ALT 88 U/L (0-41) H 05/07/24 09:23 Alkaline Phosphatase 110 U/L (40-130) 05/07/24 09:23 Troponin T Baseline 35 ng/L (0-15) H 05/07/24 09:23 Troponin T 120 Minute 33.33 ng/L (0-15) H 05/07/24 11:56 Delta Troponin T -1.67 ABS# (0-10) L 05/07/24 11:56 C-Reactive Protein 3.6 mg/L (0.0-4.9) 05/07/24 09:23 Total Protein 6.8 g/dL (6.6-8.7) 05/07/24 09:23 Albumin 4.2 g/dL (3.5-5.2) 05/07/24 09:23 Globulin 2.6 g/dL (1.3-4.6) 05/07/24 09:23 Lipase 53 U/L (13-60) 05/07/24 09:23 TSH 2.09 uIU/mL (0.27-4.20) 05/07/24 09:23 Urine Color Yellow (Yellow) 05/07/24 09:50 Urine Appearance Turbid (CLEAR) A 05/07/24 09:50 Urine pH 7.0 (5-7) 05/07/24 09:50 Ur Specific [place] 1.015 (1.005-1.030) 05/07/24 09:50 Urine Protein Trace (Negative) A 05/07/24 09:50 Urine Glucose (UA) Negative (Normal) 05/07/24 09:50 Urine Ketones Trace (Negative) 05/07/24 09:50 Urine Blood Negative (Negative) 05/07/24 09:50 Urine Nitrate Negative (Negative) 05/07/24 09:50 Urine Bilirubin Negative (Negative) 05/07/24 09:50 Urine Urobilinogen 0.2 mg/dL (Negative) 05/07/24 09:50 Ur Leukocyte Esterase Negative (Negative) 05/07/24 09:50 Urine RBC 6-10 /hpf (0-2) 05/07/24 09:50 Urine WBC 0-5 /hpf (0-5) 05/07/24 09:50 Ur Squamous Epith Cells 0-5 /hpf (0-5) 05/07/24 09:50 Amorphous Sediment 1+ /hpf 05/07/24 09:50 Urine Bacteria None seen /hpf (NONE) 05/07/24 09:50 Hyaline Casts 1.65 /lpf 05/07/24 09:50 Ur Oval Fat Bodies 1+ /hpf 05/07/24 09:50 All radiology interpretation(s) finalized by discharge EKG Data EKG 1: I personally reviewed and interpreted this EKG as follows: EKG interpretation date: 05/07/24 EKG interpretation time: 09:50 Interpretation: nsr hr [address] or t wave abnormalities qrs 90 qtc 412 Discharge Plan Discharge Patient Disposition: Xfer Short-Term Hosp Clinical Impression: Mass of pancreas Condition: Stable Prescriptions: No Action tizanidine 4 mg tablet 4 mg PO Q6H PRN (Reason: muscle spasticity) Qty: 20 0RF Rx Instructions: do not exceed 3 doses per 24 hrs promethazine 25 mg tablet 25 mg PO Q6H PRN (Reason: nausea and vomiting) Qty: 20 0RF diclofenac sodium 75 mg tablet,delayed release (DR/EC) 75 mg PO Q12H PRN (Reason: pain) Qty: 20 0RF Coding Level of Care Code ED Soil Biology Teacher for Chg Fwd Related Data Previous Rx's Medication Instructions Recorded diclofenac sodium 75 mg 75 mg PO Q12H PRN pain #20 tabs 04/29/24 tablet,delayed release promethazine 25 mg tablet 25 mg PO Q6H PRN nausea and 04/29/24 vomiting #20 tabs tizanidine 4 mg tablet 4 mg PO Q6H PRN muscle spasticity 04/29/24 #20 tabs Allergies Allergy/AdvReac Type Severity Reaction Status Date / Time No Known Allergies Allergy Verified 03/22/24 14:01
[2024-05-07 09:48] LABS: Erythrocyte Sedimentation Rate 1 mm/hr (0-10)
[2024-05-07 09:59] LABS: Troponin(5th) Baseline 35 ng/L (0-15)
[2024-05-07 10:04] LABS: Bilirubin Urine Negative (Negative); Blood Urine Negative (Negative); Glucose Urine UA Negative (Normal); Ketones Urine Trace (Negative); Leukocyte Esterase Urine Negative (Negative); Nitrate Urine Negative (Negative); Protein Urine Trace (Negative); Specific Gravity, Urine 1.015 (1.005-1.030); Urine Appearance Turbid (CLEAR); Urine Color Yellow (Yellow); Urobilinogen Urine 0.2 mg/dL (Negative)
[2024-05-07 10:08] LABS: Add Urine Microscopic? YES; Bacteria Urine None Seen /hpf; Hyaline Casts Urine 1.65 /lpf; Squamous Epithelial Cell Urine 0-5 /hpf (0-5); WBC Urine 0-5 /hpf (0-5)
[2024-05-07 10:13] LABS: Alanine Aminotransferase 88 U/L (0-41); Albumin Level 4.2 g/dL (3.5-5.2); Alkaline Phosphatase 110 U/L (40-130); Aspartate Amino Transferase 62 U/L (0-40); Blood Urea Nitrogen 24 mg/dL (8-23); C Reactive Protein 3.6 mg/L (0.0-4.9); Calcium 9.7 mg/dL (8.5-10.5); Carbon Dioxide 20 mmol/L (22-29); Chloride 80 mmol/L (98-107); Creatinine Clr Calc Pharmacy 47.1427; Globulin 2.6 g/dL (1.3-4.6); Glomerular Filtration Rate 55.6 mL/min (90-130); Glucose 108 mg/dL (65-115); Lipase 53 U/L (13-60); Magnesium 2.6 mg/dL (1.7-2.3); Osmolality Calculated 257 mOsm/kg (285-295); Sodium 121 mmol/L (136-145); Thyroid Stimulating Hormone 2.09 uIU/mL (0.27-4.20); Total Bilirubin 1.6 mg/dL (0.15-1.2); Total Protein 6.8 g/dL (6.6-8.7)
[2024-05-07 10:22] LABS: UA Slide Review UA Slide Review Perf
[2024-05-07 10:24] LABS: Add Urine Culture? No; Amorphous Sediment Urine 1+ /hpf; Oval Fat Bodies Urine 1+ /hpf
[2024-05-07] MEDS: iohexol 300 mg/mL 100 mL Btl IV (10:42)
--- NOTE | 2024-05-07 10:42 | ECG_ITS ---
[facility]24[facility]07 Pat Name: Natalee Barney Department: Room: Gender: Male Recruitment Internship: : 1960 Requested By: Krystina Landa Order Number: [id number] Tonya MD: Ed Calloway M.D. Measurements Intervals [place] Rate: 91 P: 80 [place]: 152 QRS: 60 QRSD: 102 T: 90 QT: 383 QTc: 473 Interpretive Statements SINUS RHYTHM Compared to ECG 05/07/2024 09:50:00 No significant changes Electronically Signed On 05-09-2024 23:30:38 PAPERHANGER CONTRACTOR by Ed Calloway M.D. [email or web address]
[2024-05-07 11:04] VITALS: BP 116/67; PULSE 96; O2SAT 100
[2024-05-07] MEDS: sodium chloride 0.9% 1,000 ML 999 ML IV (11:13)
[2024-05-07] MEDS: HYDROmorphone 1 mg/mL INJ 1 mL 0.5 MG IVP (11:13)
[2024-05-07 11:58] VITALS: BP 129/74; PULSE 90; O2SAT 100
[2024-05-07 12:23] LABS: Troponin 5 2HR 33.33 ng/L (0-15)
[2024-05-07 12:29] LABS: Troponin 5 2HR Delta -1.67 ABS# (0-10)
[2024-05-07 12:32] VITALS: BP 135/80; PULSE 91; O2SAT 99
[2024-05-07 15:00] VITALS: BP 140/85; PULSE 100; O2SAT 100
--- NOTE | 2024-05-07 15:06 | ECG_ITS ---
[facility] Test Date: 2024-05-07 Pat Name: Natalee Barney Department: Room: Gender: Male Medical Asst: : 1960 Requested By: Krystina Landa Order Number: [id number] Tonya MD: Ed Calloway M.D. Measurements Intervals [place] Rate: 93 P: 80 [place]: 154 QRS: 59 QRSD: 95 T: 85 QT: 331 QTc: 413 Interpretive Statements SINUS RHYTHM POSSIBLE RIGHT ATRIAL ENLARGEMENT [0.25mV P-WAVE] Compared to ECG 05/07/2024 10:42:44 No significant changes Electronically Signed On 05-09-2024 23:29:38 B[employer]FUELS PROCESSING TECHNICIAN by Ed Calloway M.D. [email or web address]
[2024-05-07 15:52] LABS: Troponin 5 6HR 36.16 ng/L (0-15); Troponin 5 6HR Delta 1.16 ng/L (0-12)
[2024-05-07] MEDS: HYDROmorphone 1 mg/mL INJ 1 mL IVP ×2 (16:40→22:25)
[2024-05-07 16:58] LABS: Alanine Aminotransferase 80 U/L (0-41); Albumin Level 4.3 g/dL (3.5-5.2); Alkaline Phosphatase 100 U/L (40-130); Aspartate Amino Transferase 53 U/L (0-40); Blood Urea Nitrogen 23 mg/dL (8-23); Calcium 9.7 mg/dL (8.5-10.5); Carbon Dioxide 25 mmol/L (22-29); Chloride 88 mmol/L (98-107); Creatinine Clr Calc Pharmacy 55.7141; Globulin 2.5 g/dL (1.3-4.6); Glomerular Filtration Rate 67.4 mL/min (90-130); Glucose 109 mg/dL (65-115); Osmolality Calculated 266 mOsm/kg (285-295); Sodium 126 mmol/L (136-145); Total Bilirubin 1.7 mg/dL (0.15-1.2); Total Protein 6.8 g/dL (6.6-8.7)
[2024-05-07 17:10] LABS: Anion Gap 17.4 (5-19); Potassium 4.4 mmol/L (3.5-5.1)
[2024-05-07 18:18] VITALS: BP 125/76; PULSE 104; O2SAT 95
[2024-05-07] MEDS: acetaminophen 500 mg Tablet 1000 MG PO (22:42)
[2024-05-08] VITALS (17 sets, daily range): BP systolic 114–142; BP diastolic 56–84; PULSE 69–100; RESP 18; O2SAT 97–100
[2024-05-08] MEDS: HYDROmorphone 1 mg/mL INJ 1 mL 0.5 MG IVP ×2 (09:44→14:11)
--- NOTE | 2024-05-08 10:50 | PC.NURSE ---
pt provided ice pack for c/o 10/10 pain, ED provider notified of c/o pain.
--- NOTE | 2024-05-08 12:30 | PC.NURSE ---
per UC; Viridiana at [facility] in transfer center requests updated vitals on pt; update provided. Viridiana states 2 patients are ahead of this pt, still pending bed for transfer to be complete.
[2024-05-08 14:54] LABS: Eosinophils % 0.1 %; Hematocrit 39.5 % (37-53); Lymphocytes # 0.6 10^3/uL (0.8-4.8); Mean Corpuscular HGB Conc 34.4 g/dL (30-55); Mean Corpuscular Hemoglobin 31.9 pg (27-33); Mean Corpuscular Volume 92.7 fl (82-101); Mean Platelet Volume 8.5 fL (7.4-10.4); Monocytes # 0.6 10^3/uL (0.2-0.9); Monocytes % 7.2 %; Neutrophils # 7.47 10^3/uL (1.8-7.7); Neutrophils % 85.2 %; Nucleated Red Blood Cells % 0 %; Platelet Count 344 10^3/cmm (157-399); Red Blood Count 4.26 10^6/uL (3.85-5.65); Red Cell Distribution Width 13.5 % (12.1-15.1); White Blood Count 8.76 10^3/uL (3.29-11.43)
[2024-05-08 15:17] LABS: Alanine Aminotransferase 77 U/L (0-41); Alkaline Phosphatase 94 U/L (40-130); Aspartate Amino Transferase 53 U/L (0-40); Blood Urea Nitrogen 24 mg/dL (8-23); Calcium 9.3 mg/dL (8.5-10.5); Carbon Dioxide 23 mmol/L (22-29); Chloride 87 mmol/L (98-107); Creatinine Clr Calc Pharmacy 55.7141; Globulin 2.3 g/dL (1.3-4.6); Glomerular Filtration Rate 67.4 mL/min (90-130); Glucose 98 mg/dL (65-115); Lipase 30 U/L (13-60); Osmolality Calculated 264 mOsm/kg (285-295); Sodium 125 mmol/L (136-145); Total Bilirubin 1.5 mg/dL (0.15-1.2); Total Protein 6.3 g/dL (6.6-8.7)
--- NOTE | 2024-05-08 17:58 | PC.NURSE ---
updated family and pt on status of transfer/delays. no further questions/concerns.
[2024-05-08] MEDS: HYDROmorphone 1 mg/mL INJ 1 mL IVP (18:11)
--- NOTE | 2024-05-08 18:11 | PC.NURSE ---
report given to [facility] @[phone], family and pt notified of updates. report called to [facility] per ED Charge nurse.
== END 2024-05-08 18:19 | disposition short-term general hospital (02) ==
PROVIDERS: Family Medicine; Emergency Provider Emergency Medicine
DX: K86.89 Other specified diseases of pancreas (principal)
CPT/HCPCS: 36415; 71045; 71275; 74177; 80053; 81001; 83690; 83735; 84443; 84484; 85025; 85651; 86140; 93005; 96361; 96374; 96376; 99285; J1171; J7030

== ENCOUNTER 2024-05-21 22:51 | Emergency (ER) | payer OTHER, SELFPAY ==
[2024-05-21 23:02] VITALS: BP 124/76; PULSE 119; RESP 18; TEMP 35.8; O2SAT 95; BMI 16.2
--- NOTE | 2024-05-21 23:56 | PC.NURSE ---
Pt. asked to have his I.V. removed in waiting room that was started by ems. Pt. states that he would like to go home , because the ambulance gave him morphine and he is better.
== END 2024-05-21 23:57 | disposition left against medical advice (07) ==
PROVIDERS: Emergency Provider Family Medicine
DX: Z53.21 Procedure and treatment not carried out due to patient leaving prior to being seen by health care provider (principal)